=== PATIENT | female | born 1970 | race Caucasian/White ===

== ENCOUNTER 2017-08-28 10:05 | Day surgery (SDC) | payer OTHER ==
[~2017-08-28] VITALS: Ht 165.1 cm; Wt 90.7 kg
[~2017-08-28 10:05] MED LIST: DEXILANT60 MG PO; FARXIGA5 MG PO; FLOMAX0.4 MG PO; GLUCOPHAGE500 MG PO; MIRENA1 EACH IY; PRAVACHOL80 MG PO; VENLAFAXINE HC100 MG PO
[2017-08-28 10:30] VITALS: BP 144/67
[2017-08-28 15:30] VITALS: BP 128/74
[2017-08-28 16:07] VITALS: BP 126/59
== END 2017-08-28 16:11 | disposition home or self-care (01) ==
LOC: SDC 10:05
PROVIDERS: Urology
DX: N20.1 Calculus of ureter (principal); E11.9 Type 2 diabetes mellitus without complications; E78.00 Pure hypercholesterolemia, unspecified; E03.9 Hypothyroidism, unspecified; K21.9 Gastro-esophageal reflux disease without esophagitis; Z79.84 Long term (current) use of oral hypoglycemic drugs
CPT/HCPCS: 82365 90; 82948; 93005; C1877; J0131; J0690; J1170; J1885; J2250; J2405; J3010; Q0175